=== PATIENT | male | born 1940 | race Caucasian/White ===

== ENCOUNTER 2019-09-15 11:28 | Emergency (ER) | payer OTHER, SELFPAY ==
--- NOTE | ~2019-09-15 | XR_ITS ---
EXAMINATION: XR abdomen/kub 1V DATE: 09/15/2019 13:16 INDICATION: Left flank pain. TECHNIQUE: A supine view of the abdomen on 2 radiographs was obtained. COMPARISON: CT abdomen and pelvis 09/15/2019 FINDINGS: There are phleboliths in the pelvis. There is a 5 mm stone at left ureteropelvic junction. The kidneys are obscured by bowel. There are no dilated loops of bowel. IMPRESSION: 1. 5 mm stone at left ureteropelvic junction. Reviewed, dictated and finalized at location A.
--- NOTE | ~2019-09-15 | CT_ITS ---
EXAMINATION: CT abdomen pelvis wo con DATE: 09/15/2019 12:39 INDICATION: Left flank pain. TECHNIQUE: Computed tomography (CT) of the abdomen and pelvis was performed without intravenous contr ast. Automated exposure control and iterative reconstruction technique were employed. The dose-length product was 484.16 mGy-cm. COMPARISON: CT abdomen and pelvis 01/07/2009 FINDINGS: The visualized portions of the lung bases demonstrate mild atelectasis. No pleural effusion . The heart size is normal. There are coronary artery calcifications. No pericardial effusion. There is a large sliding hiatal hernia. The liver, gallbladder, spleen, pancreas, and adrenal glands are no rmal. There is a 2 mm stone in right kidney. There are 2 mm and 3 mm stones in left kidney. There is mild left hydronephrosis. There is a 5 mm stone at left ureteropelvic junction. There is diverticulos is of the colon without evidence of diverticulitis. There are no dilated loops of bowel. The appendix is normal. There are no pathologically enlarged lymph nodes. There is no free intraperitoneal fluid. There is severe lower lumbar spondylosis and mild thoracic spondylosis. IMPRESSION: 1. 5 mm stone at left ureteropelvic junction with mild left hydronephrosis. 2. Bilateral nonobstructing kidney stones. Reviewed, dictated and finalized at location A.
[2019-09-15 11:39] VITALS: BP 175/70; PULSE 73; RESP 14; TEMP 36.1; O2SAT 99
--- NOTE | 2019-09-15 11:40 | ED.ABDPAIN ---
HPI - Abdominal Pain General Chief Complaint: Back Pain/Injury Stated Complaint: L FLANK PAIN TD Time Seen by Provider: 09/15/19 11:31 Source: RN notes reviewed History of Present Illness HPI narrative: Patient presents emergency department from home for left flank pain. Patient states his symptoms began this morning after he had a bowel movement. Pain is located left flank and does not radiate. Described as sharp and stabbing. He reports mild associated nausea. Denies any fevers or chills chest pain shortness of breath abdominal pain vomiting diarrhea or any other symptoms. The patient states he is taken no previous pain medication at home Related Data Allergies Allergy/AdvReac Type Severity Reaction Status Date / Time omeprazole Allergy Severe UNKNOWN Verified 12/25/18 08:11 celecoxib Allergy Unknown Verified 12/06/15 07:43 clopidogrel Allergy Unknown Verified 12/06/15 07:42 lisinopril Allergy Unknown Verified 12/06/15 07:42 Penicillins Allergy Unknown Verified 12/06/15 07:43 Dmxvnrr-Pjj-Zyh Reductase Allergy Unknown JOINT PAIN Verified 12/25/18 08:11 Inhibitor CLOPIDOGREL BISULFATE Allergy Unknown PATIENT Uncoded 12/25/18 08:11 STATES HE BLED OUT Review of Systems Review of Systems: Narrative: Gen.: Denies fevers or chills Eyes: Denies eye pain or visual change ENT: Denies congestion Respiratory: Denies shortness of breath or cough CV: Denies chest pain or palpitations GI: Denies abdominal pain nausea, emesis or diarrhea reports left flank pain denies burning, urgency, frequency or hematuria Musculoskeletal: Denies back pain or muscle pain Neuro: Denies numbness, tingling, weakness or focal weakness Skin: Denies rash Except as documented, all other systems reviewed and negative [facility] Past Medical History Medical History (Updated 09/15/19 @ 13:03 by Adams Toro DO) Coronary artery disease GERD (gastroesophageal reflux disease) Social History Social History Smoking status: Never smoker Alcohol intake: current Gender identity (if verbalized by the patient): Male Exam Narrative: Exam Narrative: APPEARANCE: No acute distress, nontoxic, resting in bed EYES: EOMI HEENT: Normocephalic, atraumatic, OMM RESPIRATORY: No respiratory distress Clear to auscultation bilaterally with no rhonchi wheezing or rales. CARDIOVASCULAR: Regular rate and rhythm without murmurs rubs or gallops. ABDOMINAL: Soft, nontender, nondistended, no rebound or guarding left flank tender to palpation no overlying rashes MUSCULOSKELETAl: Moves all extremities. No clubbing, cyanosis or edema. NEURO: Awake and alert. Following commands, speech normal, no focal deficits SKIN:: Warm, dry. No rashes lesions or abrasions PSYCHIATRIC: Normal affect/mood, Course Course Emergency Course: Discussed with patient results of workup and diagnosis. Discussed need for follow-up with primary care, proper use of medication, and reasons to return to the emergency department. Patient understands and agrees to current treatment plan Vital Signs Vital signs: Vital Signs Temperature 97.0 F L 09/15/19 11:39 Pulse Rate 73 09/15/19 11:39 Respiratory Rate 14 09/15/19 11:39 Blood Pressure 175/70 H 09/15/19 11:39 Pulse Oximetry 99 09/15/19 11:39 Temperature 97.0 F L 09/15/19 11:39 Pulse Rate 73 09/15/19 11:39 Respiratory Rate 14 09/15/19 11:39 Blood Pressure 175/70 H 09/15/19 11:39 Pulse Oximetry 99 09/15/19 11:39 MDM - Abdominal Pain Lab Data Result diagrams: 09/15/19 12:00 09/15/19 12:00 Labs: Lab Results 09/15/19 09/15/19 09/15/19 Range/Units 12:00 12:00 12:08 WBC 8.8 (4.5-10.0) K/mm3 RBC 4.55 L (4.6-6.20) M/mm3 Hgb 14.0 (14.0-18.0) g/dL Hct 42.2 (42.0-52.0) % MCV 92.7 (80-100) fl MCH 30.8 (26-34) pg MCHC 33.2 (32-36) g/dl RDW 12.8 (11.5-14.5) % Plt Count 239
[2019-09-15 12:10] LABS: Basophils Percent Auto 0.5 % (0.2-1.2); Eosinophils Percent Auto 0.2 % (0-4.4); Hematocrit 42.2 % (42.0-52.0); Immature Granulocyte Absolute 0.03 K/mm3 (0.00-0.031); Immature Granulocyte Percent A 0.3 % (0-0.5); Lymphocytes Absolute Auto 0.79 K/mm3 (0.9-3.2); Mean Corpuscular HGB Conc 33.2 g/dl (32-36); Mean Corpuscular Hemoglobin 30.8 pg (26-34); Mean Corpuscular Volume 92.7 fl (80-100); Mean Platelet Volume 10.3 fl (7.4-10.4); Monocytes Absolute Auto 0.4 K/mm3 (0.1-0.6); Monocytes Percent Auto 4.1 % (2.6-8.5); Neutrophils Absolute Auto 7.5 K/mm3 (1.3-6.7); Neutrophils Percent Auto 85.9 % (45.5-73.1); Platelet Count Result 239 k/mm3 (150-375); Red Blood Count 4.55 M/mm3 (4.6-6.20); Red Cell Distribution Width 12.8 % (11.5-14.5); White Blood Count 8.8 K/mm3 (4.5-10.0)
[2019-09-15 12:21] LABS: Add Urine Microscopic? YES; Appearance Urine Clear (Clear); Bilirubin Urine Negative (Negative); Blood Urine 2+ (Negative); Color Urine Yellow (Yellow); Glucose Urine UA Negative (Negative); Ketones Urine Negative (Negative); Leukocyte Esterase Ur Negative LEU/UL (Negative); Mucus Urine Rare /lpf; Nitrate Urine Negative (Negative); Protein Urine 1+ mg/dL (Negative); RBC Urine 21-50 /hpf (0-2); Urobilinogen Urine Negative mg/dL (<2.0); WBC Urine 0-3 /hpf
[2019-09-15 12:22] LABS: Alanine Aminotransferase 15 U/L (4-50); Albumin Level 4.9 g/dL (3.5-5.1); Alkaline Phosphatase 69 U/L (38-126); Aspartate Amino Transferase 25 U/L (17-59); Bilirubin,Total 0.4 mg/dL (0.2-1.3); Blood Urea Nitrogen 21 mg/dL (9-20); Calcium 9.5 mg/dL (8.4-10.2); Carbon Dioxide 27 mmol/L (22-30); Chloride 107 mmol/L (98-107); Estimated CRCL calculation 47 ml/min; Estimated Glomerular Filt Rate 49; Glucose 129 mg/dL (75-110); Lipase 150 U/L (23-300); Sodium 141 mmol/L (137-145)
[2019-09-15] MEDS: TAMSULOSIN HCL 0.4 MG CAPSULE PO (13:41)
[2019-09-15 14:02] VITALS: BP 170/74; PULSE 70; RESP 14; O2SAT 99
== END 2019-09-15 14:10 | disposition home or self-care (01) ==
PROVIDERS: Emergency Provider Emergency Medicine; PCP Family Medicine Adolescent Medicine
DX: N13.2 Hydronephrosis with renal and ureteral calculous obstruction (principal); I25.10 Atherosclerotic heart disease of native coronary artery without angina pectoris; K21.9 Gastro-esophageal reflux disease without esophagitis
CPT/HCPCS: 36415; 74018; 74176; 80053; 81001; 83690; 85025; 96374; 99284; A9270; J0131

== ENCOUNTER 2019-09-16 11:00 | Outpatient (CLI) | payer OTHER, SELFPAY ==
--- NOTE | ~2019-09-16 | XR_ITS ---
EXAMINATION: XR abdomen/kub 1V INDICATION: Left ureteropelvic junction stone TECHNIQUE: Supine view of the abdomen is obtained on two radiographs. COMPARISON: 09/15/2019 FINDINGS: A 5 mm stone is again seen at the expected location of the left ureteropelvic junction. Phl eboliths are noted in the pelvis. The bowel gas pattern is normal. IMPRESSION: 1. Unchanged 5 mm stone at the left ureteropelvic junction. Reviewed, dictated and finalized at location A.
== END 2019-09-16 11:01 | disposition home or self-care (01) ==
PROVIDERS: PCP Family Medicine Adolescent Medicine; Visit Provider Urology
DX: N20.1 Calculus of ureter (principal)
CPT/HCPCS: 74018

== ENCOUNTER 2019-09-28 11:34 | Outpatient (CLI) | payer OTHER, SELFPAY ==
--- NOTE | ~2019-09-28 | XR_ITS ---
EXAMINATION: XR abdomen/kub 1V INDICATION: Left ureteral stone TECHNIQUE: Supine views of the abdomen were obtained on 2 radiographs. COMPARISON: 09/16/2019 FINDINGS: The previously described 5 mm stone at the left ureteropelvic junction is not definitely id entified. There are phleboliths of the pelvis. The bowel gas pattern is normal. IMPRESSION: 1. Previously described left UPJ stone not definitely identified. Reviewed, dictated and finalized at location A.
== END 2019-09-28 11:35 | disposition home or self-care (01) ==
LOC: ANHIMG 11:39
PROVIDERS: PCP Family Medicine Adolescent Medicine; Visit Provider Urology
DX: N20.1 Calculus of ureter (principal)
CPT/HCPCS: 74018

== ENCOUNTER → 2021-08-10 09:06 | Outpatient (CLI) | payer OTHER, SELFPAY ==
[2021-08-10 16:02] LABS: SARS-CoV-2 RNA PCR Negative
== END ==
PROVIDERS: PCP Family Medicine Adolescent Medicine; Visit Provider Family Medicine Adolescent Medicine
DX: R05.9 Cough, unspecified (principal); Z20.822 Contact with and (suspected) exposure to COVID-19
CPT/HCPCS: C9803; U0003; U0005

== ENCOUNTER → 2021-09-20 14:02 | Outpatient (CLI) | payer OTHER, SELFPAY ==
--- NOTE | ~2021-09-20 | XR_ITS ---
EXAMINATION: XR lumbar spine 2-3V DATE: 09/20/2021 14:27 INDICATION: Right-sided low back pain TECHNIQUE: Anteroposterior and lateral views of the lumbar spine, and cone-down lateral view of the l umbosacral junction were obtained. COMPARISON: CT, 09/15/2019 FINDINGS: There is no fracture. The vertebral body alignment is normal. There is severe loss of inter vertebral disc space height at L5-S1. Vertebral body heights are maintained. Small degenerative osteo phytes project from the anterior endplates of multiple vertebral bodies. IMPRESSION: 1. Moderate lumbar spondylosis at L5-S1 without acute findings. Reviewed, dictated and finalized at location F.
== END ==
PROVIDERS: PCP Family Medicine Adolescent Medicine; Visit Provider Family Medicine Adolescent Medicine
DX: M53.3 Sacrococcygeal disorders, not elsewhere classified (principal); M47.897 Other spondylosis, lumbosacral region
CPT/HCPCS: 72100

== ENCOUNTER → 2022-07-04 16:34 | Outpatient (CLI) | payer OTHER, SELFPAY ==
--- NOTE | ~2022-07-04 | MR_ITS ---
EXAMINATION: MR lumbar spine wo con DATE: 07/04/2022 17:26 INDICATION: Bilateral sciatica. Low back pain. L5-S1 disc collapse. TECHNIQUE: Magnetic resonance imaging (MRI) of the lumbar spine was performed without intravenous con trast. Sequences included sagittal T2-weighted FSE, sagittal T2-weighted FS FSE, sagittal T1-weighted FSE, and axial T2-weighted FSE. COMPARISON: Lumbar spine radiograph 09/20/2021 FINDINGS: There is 3 mm anterolisthesis of L4 on L5. There is mild chronic anterior wedging of T12 ve rtebral body. There is moderately decreased disc height at L5-S1 with endplate remodeling. The distal spinal cord signal intensity is normal. The conus medullaris is at T12-L1. The following disc levels are specifically discussed: L1-L2: There is a right central protrusion. There is mild right facet joint osteoarthritis. There is no neural foraminal stenosis. There is mild central canal stenosis. L2-L3: The disc is bulging. There is moderate bilateral facet joint osteoarthritis. There is mild waylon ateral neural foraminal stenosis. There is mild central canal stenosis. L3-L4: The disc is bulging. There is severe bilateral facet joint osteoarthritis. There is hypertroph y of the ligamentum flavum. There is mild bilateral neural foraminal stenosis. There is mild central canal stenosis. L4-L5: The disc is bulging. There is severe bilateral facet joint osteoarthritis. There is hypertroph y of the ligamentum flavum. There is mild bilateral neural foraminal stenosis. There is moderate cent ral canal stenosis. L5-S1: The disc is bulging and has an annular fissure. There is mild bilateral facet joint osteoarthr itis. There is moderate bilateral neural foraminal stenosis. There is mild central canal stenosis. IMPRESSION: 1. Moderate lower lumbar spondylosis. Reviewed, dictated and finalized at location A.
== END ==
PROVIDERS: PCP Family Medicine Adolescent Medicine; Visit Provider Family Medicine Adolescent Medicine
DX: M54.31 Sciatica, right side (principal); M54.32 Sciatica, left side; M47.896 Other spondylosis, lumbar region
CPT/HCPCS: 72148

== ENCOUNTER → 2022-08-24 08:02 | Outpatient (CLI) | payer OTHER, SELFPAY ==
--- NOTE | ~2022-08-24 | US_ITS ---
EXAMINATION: US aorta DATE: 08/24/2022 08:23 INDICATION: Abdominal aortic aneurysm. TECHNIQUE: Grayscale, color Doppler, and pulsed Doppler images of the aorta and common iliac arteries were obtained. COMPARISON: Lumbar spine MRI 07/04/2022 FINDINGS: The aorta demonstrates a 3.5 cm fusiform infrarenal aneurysm. The right common iliac artery measures 1.4 cm. The left common iliac artery measures 1.3 cm. IMPRESSION: 1. 3.5 cm fusiform infrarenal aortic aneurysm. Reviewed, dictated and finalized at location A.
== END ==
PROVIDERS: PCP Pain Medicine Pain Medicine; Visit Provider Family Medicine Adolescent Medicine
DX: I71.43 Infrarenal abdominal aortic aneurysm, without rupture (principal)
CPT/HCPCS: 76775

== ENCOUNTER 2023-02-28 10:03 | Emergency (ER) | payer OTHER, SELFPAY ==
--- NOTE | ~2023-02-28 | XR_ITS ---
EXAMINATION: XR chest 2V DATE: 02/28/2023 11:04 INDICATION: Cough. TECHNIQUE: Frontal and lateral views of the chest were obtained on 3 radiographs. COMPARISON: Chest 2 views 02/25/2009 FINDINGS: There is no pneumonia, pleural effusion, or pneumothorax. The heart size is normal. There i s a large hiatal hernia. There is mild chronic anterior wedging of multiple thoracic vertebral bodies . IMPRESSION: 1. Large hiatal hernia. Reviewed, dictated and finalized at location A. ER INSULATOR IMPRESSION: 1. Large hiatal hernia.
--- NOTE | 2023-02-28 10:09 | ED.URI ---
HPI - URI/Sore Throat General Chief Complaint: Upper Respiratory Infection Stated Complaint: COUGH Time Seen by Provider: 02/28/23 10:50 Source: patient and RN notes reviewed Mode of arrival: ambulatory Limitations: no limitations History of Present Illness HPI Narrative: 82-year-old male presents concern for cough for 1 month. He reports he has tried ctbv-xxo-obtkpem medication that has not helped. He denies fever, body aches, chills, sweats. Reports some nasal congestion or rhinorrhea. MD elicited complaint: cough Related Data Home Medications Medication Instructions Recorded Confirmed coenzyme Q10 100 mg capsule 100 mg PO DAILY 06/25/22 02/28/23 (CoQ-10) magnesium 250 mg tablet 250 mg PO DAILY 06/25/22 02/28/23 omega 2-qgr-esv-fish oil 60 mg-90 1 cap PO DAILY 06/25/22 02/28/23 mg-500 mg capsule (Fish Oil) latanoprost 0.005 % eye drops 1 drp EACH EYE HS 02/28/23 02/28/23 timolol maleate 0.5 % eye drops 1 drp EACH EYE DAILY 02/28/23 02/28/23 Allergies Allergy/AdvReac Type Severity Reaction Status Date / Time omeprazole Allergy Severe UNKNOWN Verified 02/28/23 10:08 celecoxib Allergy Unknown Joint Pain Verified 02/28/23 10:08 clopidogrel Allergy Unknown Bleeds out Verified 02/28/23 10:08 lisinopril Allergy Unknown cough Verified 02/28/23 10:08 Penicillins Allergy Unknown Rash Verified 02/28/23 10:08 Qahmfne-RRL-AxT Reductase Allergy Unknown JOINT PAIN Verified 02/28/23 10:08 Inhibitor [Eodsfjr-Psm-Yyz Reductase Inhibitor] CLOPIDOGREL BISULFATE Allergy Unknown PATIENT Uncoded 02/28/23 10:08 STATES HE BLED OUT Review of Systems Review of Systems: CONSTITUTIONAL: Denies malaise, chills, sweats, or fever. EYES: Denies visual changes, redness, or discharge. ENT: Reports rhinorrhea, congestion. Denies sinus pain, otalgia and sore throat. CARDIOVASCULAR: Denies chest pain, palpitations, or edema. RESPIRATORY: Reports cough. Denies dyspnea. GASTROINTESTINAL: Denies abdominal pain, nausea, vomiting, diarrhea SKIN: Denies rash or itching. MUSCULOSKELETAL: Denies myalgia. NEUROLOGIC: Denies headache. All systems reviewed & are unremarkable except as noted in HPI and below PMFSH Past Medical History Medical History Coronary artery disease GERD (gastroesophageal reflux disease) Normal colonoscopy 12/17 Family History Family History Mother Heart disease Acute myocardial infarction Breast cancer Father Carcinoma of colon Depression Sibling Heart disease Other Asthma Social History Social History (Updated 08/23/22 @ 11:07 by Vinny Harris MA) Smoking status: Never smoker Second hand tobacco smoke exposure: Yes Alcohol intake: never Substance use: never Substance use type: does not use Lack of Transportation: No Lack of Food: Never True Current Housing: I Have Housing Concerned About Future Housing: No Difficulty Paying Gas/Electric Bills: No Difficulty Paying for Meds: No Currently Unemployed: No Education: High School Diploma/GED Living arrangements: with family Occupation/Education: retired Gender identity (if verbalized by the patient): Male Sexual Orientation (if Verbalized by the Patient): Straight or Heterosexual Spiritual care concerns: No Agree to blood products: Yes Comments At time of signature, agree with nursing past medical, surgical, social and family history. There is no relevant family history pertinent to the presenting complaint Exam Narrative: GENERAL: Well-appearing, well-nourished, and in no acute distress. HEAD: Normocephalic EYES: PERRLA, conjunctivae clear ENT: Nares clear, turbinates edematous and erythematous, clear discharge. Mucous membranes moist. TM pearly michael with dull light reflex bilaterally; no tragal tenderness. Oropharynx not erythematous without lesions. Tonsils not enlarge
[2023-02-28 10:13] VITALS: BP 146/72; PULSE 108; RESP 16; TEMP 36.5; O2SAT 94
== END 2023-02-28 11:30 | disposition home or self-care (01) ==
PROVIDERS: Emergency Provider Nurse Practitioner; PCP Family Medicine Adolescent Medicine
DX: J40 Bronchitis, not specified as acute or chronic (principal); I25.10 Atherosclerotic heart disease of native coronary artery without angina pectoris; K21.9 Gastro-esophageal reflux disease without esophagitis
CPT/HCPCS: 71046; 99213; G0463

== ENCOUNTER → 2023-04-29 10:41 | Outpatient (CLI) | payer OTHER, SELFPAY ==
--- NOTE | ~2023-04-29 | US_ITS ---
EXAMINATION: US aorta DATE: 04/29/2023 10:57 INDICATION: Abdominal aortic aneurysm. TECHNIQUE: Grayscale, color Doppler, and pulsed Doppler images of the aorta and common iliac arteries were obtained. COMPARISON: Ultrasound 08/24/2022, lumbar spine MRI 07/04/2022 FINDINGS: The aorta demonstrates a 3.5 cm fusiform infrarenal aneurysm. The right common iliac artery is normal in caliber. The left common iliac artery is normal in caliber. IMPRESSION: 1. 3.5 cm fusiform aneurysm of infrarenal aorta, stable from 08/24/2022. Reviewed, dictated and finalized at location A. HEAD
== END ==
PROVIDERS: PCP Family Medicine Adolescent Medicine; Visit Provider Family Medicine Adolescent Medicine
DX: I71.43 Infrarenal abdominal aortic aneurysm, without rupture (principal)
CPT/HCPCS: 76775

== ENCOUNTER 2024-06-04 13:51 | Emergency (ER) | payer OTHER, SELFPAY ==
[2024-06-04 14:04] VITALS: BP 141/97; PULSE 83; RESP 16; TEMP 36.5; O2SAT 99
--- NOTE | 2024-06-04 14:12 | ECG_ITS ---
Test Date: 2024-06-04 14:34:42 Measurements Intervals [place] Rate: 71 P: 70 [place]: 209 QRS: -3 QRSD: 92 T: 44 QT: 380 QTc: 415 Interpretive Statements SINUS RHYTHM LOW QRS VOLTAGE IN THE LIMB LEADS BORDERLINE ECG No previous ECG available for comparison Electronically Signed On 06-05-2024 15:29:28 MARRIAGE AND FAMILY COUNSELOR by Ilan Gardiner M.D.
--- NOTE | 2024-06-04 14:19 | ED_ITS ---
HPI - General Adult General Chief complaint: Unspecified Stated complaint: BLOOD PRESSURE PROBLEMS/SOB/WEAK Time Seen by Provider: 06/04/24 14:20 Source: patient Mode of arrival: ambulatory Limitations: no limitations History of Present Illness HPI narrative: 83-year-old male with hx CO and AAA presented for complaint of an episode of dizziness today at 11:00 a.m.. Endorses heavy breathing, weakness, and felt like he was going to pass out. He then checked his blood pressure and heart rate which were elevated, says the heart rate was 150. Denies associated palpitations chest pain, n/v at that time. Patient endorses these episodes are frequent over the past few months occurring a few times each week. Related Data Home Medications ?Medication ?Instructions ?Recorded ?Confirmed ?Last Taken ?Type coenzyme Q10 100 mg capsule 100 mg PO DAILY 06/25/22 01/22/24 Unknown History (CoQ-10) magnesium 250 mg tablet 250 mg PO DAILY 06/25/22 01/22/24 Unknown History omega 0-ciz-gey-fish oil 60 mg-90 1 cap PO DAILY 06/25/22 01/22/24 Unknown History mg-500 mg capsule (Fish Oil) latanoprost 0.005 % eye drops 1 drp EACH EYE HS 02/28/23 01/22/24 Unknown History timolol maleate 0.5 % eye drops 1 drp EACH EYE DAILY 02/28/23 01/22/24 Unknown History Allergies Allergy/AdvReac Type Severity Reaction Status Date / Time omeprazole Allergy Severe UNKNOWN Verified 06/04/24 14:03 celecoxib Allergy Unknown Joint Pain Verified 06/04/24 14:03 clopidogrel Allergy Unknown Bleeds out Verified 06/04/24 14:03 lisinopril Allergy Unknown cough Verified 06/04/24 14:03 Penicillins Allergy Unknown Rash Verified 06/04/24 14:03 Xcgodht-QTO-JsE Reductase Allergy Unknown JOINT PAIN Verified 06/04/24 14:03 Inhibitor (Upukafj-Oni-Thi Reductase Inhibitor) prednisone AdvReac Intermediate Other Verified 06/04/24 14:03 trazodone AdvReac Intermediate Other Verified 06/04/24 14:03 CLOPIDOGREL BISULFATE Allergy Unknown PATIENT Uncoded 06/04/24 14:03 STATES HE BLED OUT Review of Systems Review of Systems: Per HPI All systems reviewed & are unremarkable except as noted in HPI and below PMFSH Past Medical History Medical History Coronary artery disease GERD (gastroesophageal reflux disease) Normal colonoscopy 12/17 Family History Family History Mother Heart disease Acute myocardial infarction Breast cancer Father Carcinoma of colon Depression Sibling Heart disease Other Asthma Social History Social History (Updated 08/23/22 @ 11:07 by Vinny Harris MA) Smoking status: Never smoker Second hand tobacco smoke exposure: Yes Alcohol intake: never Substance use: never Substance use type: does not use Lack of Transportation: No Lack of Food: Never True Current Housing: I Have Housing Concerned About Future Housing: No Difficulty Paying Gas/Electric Bills: No Difficulty Paying for Meds: No Currently Unemployed: No Education: High School Diploma/GED Living arrangements: with family Occupation/Education: retired Gender identity (if verbalized by the patient): Male Sexual Orientation (if Verbalized by the Patient): Straight or Heterosexual Spiritual care concerns: No Agree to blood products: Yes Comments At time of signature, I have reviewed and agree with nursing past medical, surgical, social and family history unless otherwise noted. Please see nursing chart for further information. There is no relevant family history pertinent to the presenting complaint Exam Narrative: GENERAL: Well-appearing ENT: Mucous membranes pink and moist. NECK: Normal AROM. Supple. CHEST: No respiratory distress. Clear to auscultation. HEART: Regular rate and rhythm. No murmur appreciated. Normal peripheral pulses. ABDOMEN: Soft, nontender, nondistended, normal active bowel sounds. EXTREMITIES: Normal range of motion. No edema. SKIN: Warm, dry, no rash. Capillary refill normal. NEURO: No focal deficits. Alert and oriented x3. Gait steady. PSYCH: Normal affect. Course Course Emergency Course: Patient is aware of diagnosis, understands and agrees to treatment plan. Anticipatory guidance given. Patient agrees to follow-up as directed and is aware of reasons to seek care at the emergency department. Portions of this record may have been created with voice recognition software Level of Care: Express Care Visit Vital Signs Vital signs: Vital Signs Temperature 97.7 F 06/04/24 14:04 Pulse Rate 83 06/04/24 14:04 Respiratory Rate 16 06/04/24 14:04 Blood Pressure 141/97 H 06/04/24 14:04 Pulse Oximetry 99 06/04/24 14:04 Temperature 97.7 F 06/04/24 14:04 Pulse Rate 83 06/04/24 14:04 Respiratory Rate 16 06/04/24 14:04 Blood Pressure 141/97 H 06/04/24 14:04 Pulse Oximetry 99 06/04/24 14:04 Transfer Transfered to: [place] Transportation: Other (private vehicle) Transfer rationale: Pt is agreeable to transfer. Requests transfer to [facility] via private vehicle. Risks of transportation reviewed with pt including injury, worsening of condition and . v/u. will be driving pt; Report called to hospital, spoke with Chayo Zabala PA-C, accepting physician. Pt is in stable condition at time of transfer. Advised to remain NPO and go directly to the hospital. Medical Decision Making MDM Narrative Medical decision making narrative: Pt with reports of frequent dizziness/weakness episodes with elevated HR for a few months. Discussed physical exam findings, EKG NSR 71 Attempted to discusss with pt's pcp, however office is closed. Offered option for ER transfer as pt will not be able to contact pcp for at least 3 days, and pt is agreeable at this time. Differential Diagnosis Differential Diagnosis: CO, anemia, dehydration, sepsis, arrhythmia, BPPV, labyrinthitis, vestibular neuritis, sinusitis, CVA, migraine Vital Signs Vital Signs: Vital Signs Temperature 97.7 F 06/04/24 14:04 Pulse Rate 83 06/04/24 14:04 Respiratory Rate 16 06/04/24 14:04 Blood Pressure 141/97 H 06/04/24 14:04 Pulse Oximetry 99 06/04/24 14:04 Temperature 97.7 F 06/04/24 14:04 Pulse Rate 83 06/04/24 14:04 Respiratory Rate 16 06/04/24 14:04 Blood Pressure 141/97 H 06/04/24 14:04 Pulse Oximetry 99 06/04/24 14:04 reviewed ECG Data EKG #1: Attestation: I personally reviewed and interpreted this ECG as follows: (NSR 71) ECG completion date: 06/04/24 ECG completion time: 14:34 EKG Interpretation: normal rate and sinus rhythm Discharge Plan Discharge Clinical Impression: Dizziness Patient Disposition: Acute Care Hospital Condition: Stable Patient Language: Mohawk Prescriptions: No Action latanoprost 0.005 % drops 1 drp EACH EYE HS timolol maleate 0.5 % drops 1 drp EACH EYE DAILY magnesium 250 mg tablet 250 mg PO DAILY coenzyme Q10 [CoQ-10] 100 mg capsule 100 mg PO DAILY omega 1-dcq-hbz-fish oil [Fish Oil] 60-90-500 mg capsule 1 cap PO DAILY allopurinol 100 mg tablet 100 mg PO DAILY Qty: 30 8RF Rx Instructions: Take 1 tablet by mouth daily. colchicine 0.6 mg tablet 0.6 mg PO DAILY Qty: 20 0RF Rx Instructions: Take 1 tablet once daily until until 24 to 48 hours after the gout flare resolves. Follow-up/Referrals: Alex Pepper MD [Primary Care Provider] - Time of Disposition: 14:49
== END 2024-06-04 14:53 | disposition short-term general hospital (02) ==
PROVIDERS: Emergency Provider Nurse Practitioner Family; PCP Family Medicine Adolescent Medicine
DX: R42 Dizziness and giddiness (principal); I25.10 Atherosclerotic heart disease of native coronary artery without angina pectoris
CPT/HCPCS: 93005; 99213; G0463

== ENCOUNTER 2024-06-04 15:17 | Emergency (ER) | payer OTHER, SELFPAY ==
--- NOTE | ~2024-06-04 | XR_ITS ---
XR chest 1V portable Ordering provider: Chacorta King MD History: 83 years Male with . Palpitations . Comparison: February 28, 2023 FINDINGS: MEDIASTINUM: The cardiac silhouette is not enlarged. Sliding hiatus hernia. LUNGS: No infiltrates, effusions or pneumothorax. OTHER: No free air under the diaphragm. IMPRESSION: No acute cardiopulmonary pathology. Sliding hiatus hernia. Reviewed, dictated and finalized at location A. ER
--- OUTSIDE RECORDS SUMMARY | 2024-06-04 15:21 | XMS_ITS | Clinical Summary ---
Author Organization [facility] Address [address] [place] [id number] Care Team Providers Care Drum Sander Offbearer Name Role Phone Alex Pepper MD Primary Care Provider [phone] Social History Tobacco Use Types Packs/Day Years Used Date Smoking Tobacco: Never Assessed Sex and Gender Information Value Date Recorded Sex Assigned at Not on file Legal Sex Male 12:35 PM CDT Gender Identity Not on file Sexual Orientation Not on file Plan of Treatment Health Maintenance Due Date Last Done Comments Zoster Vaccines (1 of 2) 1992 Annual Medicare Wellness Visit 07/24/2007 Pneumococcal Vaccine: 65+ Ye ars (1 of 1 - PCV) 07/24/2007 RSV Immunization or 60+ Years (1 - 1-dose 75+ series) 2017 COVID-19 Vaccine (2023-2 5 season) 2023 Influenza Adult (#1) 2023 DTaP, Tdap and Td Vaccines ( 2 - Td or Tdap) 10/19/2029 10/20/2019 Meningococcal B Vaccine Aged Out No l onger eligible based on patient's age to complete this topic Meningococcal Vaccine Aged Out No robbie jyoti eligible based on patient's age to complete this topic RSV Immunizations Under 20 Months Aged Out No longer eligible based on patient's age to complete this topic Insurance [employer] Care Teams Drum Sander Offbearer Relationship Specialty Start Date End Date Alex Pepper MD [address] [address] PCP - General FAMILY PRACTICE 08/13/22
[2024-06-04 15:26] VITALS: BP 145/72; PULSE 83; RESP 17; TEMP 37; O2SAT 100
[2024-06-04 18:52] VITALS: BP 141/91; PULSE 68; RESP 20; TEMP 36.8; O2SAT 100
--- NOTE | 2024-06-04 19:28 | ECG_ITS ---
Test Date: 2024-06-04 19:51:35 Measurements Intervals [place] Rate: 65 P: 36 NV: 185 QRS: -16 QRSD: 86 T: 14 QT: 399 QTc: 416 Interpretive Statements SINUS RHYTHM LOW-VOLTAGE OTHERWISE NORMAL ELECTROCARDIOGRAM Compared to ECG 06/04/2024 14:34:42 No significant changes Electronically Signed On 06-05-2024 15:39:46 WOOL FLEECE SORTER by Ilan Gardiner M.D.
--- NOTE | 2024-06-04 20:03 | ED_ITS ---
HPI - General Adult General Chief complaint: Recheck/Abnormal Lab/Rx Stated complaint: HTN, dizzy, weak Time Seen by Provider: 06/04/24 19:21 History of Present Illness HPI narrative: Patient is 83-year-old gentleman presents emergency department with chief complaint of palpitations. Patient states that he episode today refill was heart was beating fast and felt lightheaded patient reports no syncope with this denies chest pain patient reports he has had episodes similar to this in the past the patient went to urgent care today and they recommended he come to the emergency department for evaluation. Related Data Home Medications ?Medication ?Instructions ?Recorded ?Confirmed ?Last Taken ?Type coenzyme Q10 100 mg capsule 100 mg PO DAILY 06/25/22 01/22/24 Unknown History (CoQ-10) magnesium 250 mg tablet 250 mg PO DAILY 06/25/22 01/22/24 Unknown History omega 5-ivr-hnh-fish oil 60 mg-90 1 cap PO DAILY 06/25/22 01/22/24 Unknown History mg-500 mg capsule (Fish Oil) latanoprost 0.005 % eye drops 1 drp EACH EYE HS 02/28/23 01/22/24 Unknown History timolol maleate 0.5 % eye drops 1 drp EACH EYE DAILY 02/28/23 01/22/24 Unknown History Allergies Allergy/AdvReac Type Severity Reaction Status Date / Time omeprazole Allergy Severe UNKNOWN Verified 06/04/24 18:56 celecoxib Allergy Unknown Joint Pain Verified 06/04/24 18:56 clopidogrel Allergy Unknown Bleeds out Verified 06/04/24 18:56 lisinopril Allergy Unknown cough Verified 06/04/24 18:56 Penicillins Allergy Unknown Rash Verified 06/04/24 18:56 Ydetsdo-MYO-JnQ Reductase Allergy Unknown JOINT PAIN Verified 06/04/24 18:56 Inhibitor (Oubhilx-Itj-Bye Reductase Inhibitor) prednisone AdvReac Intermediate Other Verified 06/04/24 18:56 trazodone AdvReac Intermediate Other Verified 06/04/24 18:56 Review of Systems 2 Review of Systems: A 10 system review of systems was completed on the patient and is negative except for what is stated in the HPI. Nursing and ancillary documentation was reviewed. [facility] Past Medical History Medical History Normal colonoscopy 9/19 GERD (gastroesophageal reflux disease) Coronary artery disease Family History Family History Mother Heart disease Acute myocardial infarction Breast cancer Father Carcinoma of colon Depression Sibling Heart disease Other Asthma Social History Social History Smoking status: Never smoker Second hand tobacco smoke exposure: Yes Alcohol intake: never Substance use: never Substance use type: does not use Lack of Transportation: No Lack of Food: Never True Current Housing: I Have Housing Concerned About Future Housing: No Difficulty Paying Gas/Electric Bills: No Difficulty Paying for Meds: No Currently Unemployed: No Education: High School Diploma/GED Living arrangements: with family Occupation/Education: retired Gender identity (if verbalized by the patient): Male Sexual Orientation (if Verbalized by the Patient): Straight or Heterosexual Spiritual care concerns: No Agree to blood products: Yes Exam 2 Narrative: GENERAL: Well-appearing, well-nourished, and in no acute distress. HEAD: Normocephalic, atraumatic. EYES: PERRLA and EOMI. ENT: Nares clear, no rhinorrhea or epistaxis. Mucous membranes moist. NECK: Supple. CHEST: Clear to auscultation. No respiratory distress. HEART: Regular rate and rhythm. No murmur heard. Normal peripheral pulses. ABDOMEN: Soft, nontender, nondistended, normal active bowel sounds. EXTREMITIES: Normal range of motion. No edema. SKIN: Warm, dry, no rash. NEURO: No focal deficits. Alert and oriented x3. PSYCH: Normal mood and affect. Course Vital Signs Vital signs: Vital Signs Temperature 37.0 C 06/04/24 15:26 Pulse Rate 83 06/04/24 15:26 Respiratory Rate 17 06/04/24 15:26 Blood Pressure 145/72 H 06/04/24 15:26 Pulse Oximetry 100 06/04/24 15:26 Oxygen Delivery Room Air 06/04/24 15:26 Temperature 36.8 C 06/04/24 18:52 Pulse Rate 80 06/04/24 21:18 Respiratory Rate 20 06/04/24 18:52 Blood Pressure 136/78 06/04/24 21:18 Pulse Oximetry 100 06/04/24 18:52 Oxygen Delivery Room Air 06/04/24 15:26 Medical Decision Making MDM Narrative Medical decision making narrative: Differential diagnosis includes dysrhythmia, electrolyte abnormality EKG showed no acute ischemic changes and no dysrhythmia laboratory studies were obtained which are within normal limits Chest x-ray showed no focal infiltrate Patient be discharged home to follow with his primary care provider Vital Signs Vital Signs: Vital Signs Temperature 37.0 C 06/04/24 15:26 Pulse Rate 83 06/04/24 15:26 Respiratory Rate 17 06/04/24 15:26 Blood Pressure 145/72 H 06/04/24 15:26 Pulse Oximetry 100 06/04/24 15:26 Oxygen Delivery Room Air 06/04/24 15:26 Temperature 36.8 C 06/04/24 18:52 Pulse Rate 80 06/04/24 21:18 Respiratory Rate 20 06/04/24 18:52 Blood Pressure 136/78 06/04/24 21:18 Pulse Oximetry 100 06/04/24 18:52 Oxygen Delivery Room Air 06/04/24 15:26 Lab Data 06/04/24 19:57 06/04/24 19:57 Labs: Lab Results 06/04/24 Range/Units 19:57 WBC 5.8 (4.5-10.0) K/mm3 RBC 4.30 L (4.6-6.20) M/mm3 Hgb 13.0 L (14.0-18.0) g/dL Hct 39.1 L (42.0-52.0) % MCV 90.9 (80-100) fl MCH 30.2 (26-34) pg MCHC 33.2 (32-36) g/dl RDW 13.7 (11.5-14.5) % Plt Count 267 (150-375) k/mm3 MPV 10.0 (7.4-10.4) fl Immature Gran % (Auto) 0.2 (0-0.5) % Neut % (Auto) 61.1 (45.5-73.1) % Lymph % (Auto) 28.0 (18.3-44.2) % [place] % (Auto) 10.4 H (2.6-8.5) % Eos % (Auto) 0.0 (0-4.4) % Baso % (Auto) 0.3 (0.2-1.2) % Lymph # (Auto) 1.61 (0.9-3.2) K/mm3 [place] # (Auto) 0.6 (0.1-0.6) K/mm3 Eos # (Auto) 0.0 (0-0.3) K/mm3 Baso # (Auto) 0.0 (0.0-0.1) K/mm3 Abs Immat Gran (auto) 0.01 (0.00-0.031) K/mm3 Absolute Neuts (auto) 3.5 (1.3-6.7) K/mm3 Absolute Nucleated RBC 0.000 (0.0-0.012) K/mm3 Nucleated RBC % 0.0 (0.0-0.2) % PT 13.5 (11.1-14.7) Seconds INR 1.0 APTT 26.6 (22.3-36.8) Seconds Sodium 141 (137-145) mmol/L Potassium 3.9 (3.4-5.0) mmol/L Chloride 104 (98-107) mmol/L Carbon Dioxide 24 (22-30) mmol/L Anion Gap 13 H (4-12) mmol/L BUN 19 (9-20) mg/dL Creatinine 1.24 (0.7-1.3) mg/dL Estim Creat Clear Calc 47 ml/min Estimated GFR 56 L (59 - ) Glucose 100 (65-110) mg/dL Lactic Acid 0.9 (0.7-2.0) mmol/L Calcium 9.3 (8.4-10.2) mg/dL Magnesium 2.3 (1.6-2.3) mg/dL Total Bilirubin 0.9 (0.2-1.3) mg/dL AST 25 (17-59) U/L ALT 16 (6-50) U/L Alkaline Phosphatase 100 (38-126) U/L Troponin I < 0.012 (0.000-0.034) ng/mL Total Protein 8.0 (6.3-8.2) g/dL Albumin 4.8 (3.5-5.1) g/dL Urine Color Yellow (Yellow) Urine Appearance Clear (Clear) Urine pH 5.5 (5.0-9.0) Ur Specific [place] 1.013 (1.001-1.035) Urine Protein Negative (Negative) mg/dL Urine Glucose (UA) Negative (Negative) mg/dL Urine Ketones Trace H (Negative) mg/dL Ur Blood (Man) Negative (Negative) Urine Nitrate Negative (Negative) Urine Bilirubin Negative (Negative) Urine Urobilinogen 0.2 (<2.0) mg/dL Leukocyte Esterase Rfl Negative (Negative) ANNALEE/UL Influenza A (RT-PCR) Negative (Negative) Influenza B (RT-PCR) Negative (Negative) RSV (RT-PCR) Negative (Negative) SARS-CoV-2 RNA (RT-PCR) Negative (Negative) Discharge Plan Discharge Clinical Impression: Heart palpitations Patient Disposition: Home, Self-Care Condition: Stable Instructions: Antibiotic Form, Heart Palpitations (ED) Additional Instructions: Please follow-up with your primary care provider as you may need a Holter monitor test in the near future Patient Language: Slovenian Prescriptions: No Action latanoprost 0.005 % drops 1 drp EACH EYE HS timolol maleate 0.5 % drops 1 drp EACH EYE DAILY magnesium 250 mg tablet 250 mg PO DAILY coenzyme Q10 [CoQ-10] 100 mg capsule 100 mg PO DAILY omega 5-ulj-mbe-fish oil [Fish Oil] 60-90-500 mg capsule 1 cap PO DAILY allopurinol 100 mg tablet 100 mg PO DAILY Qty: 30 8RF Rx Instructions: Take 1 tablet by mouth daily. colchicine 0.6 mg tablet 0.6 mg PO DAILY Qty: 20 0RF Rx Instructions: Take 1 tablet once daily until until 24 to 48 hours after the gout flare resolves. Follow-up/Referrals: Alex Pepper MD [Primary Care Provider] - Time of Disposition: 21:41
[2024-06-04 20:06] LABS: Basophils Percent Auto 0.3 % (0.2-1.2); Hematocrit 39.1 % (42.0-52.0); Immature Granulocyte Absolute 0.01 K/mm3 (0.00-0.031); Immature Granulocyte Percent A 0.2 % (0-0.5); Lymphocytes Absolute Auto 1.61 K/mm3 (0.9-3.2); Mean Corpuscular HGB Conc 33.2 g/dl (32-36); Mean Corpuscular Hemoglobin 30.2 pg (26-34); Mean Corpuscular Volume 90.9 fl (80-100); Monocytes Absolute Auto 0.6 K/mm3 (0.1-0.6); Monocytes Percent Auto 10.4 % (2.6-8.5); Neutrophils Absolute Auto 3.5 K/mm3 (1.3-6.7); Neutrophils Percent Auto 61.1 % (45.5-73.1); Platelet Count Result 267 k/mm3 (150-375); Red Cell Distribution Width 13.7 % (11.5-14.5); White Blood Count 5.8 K/mm3 (4.5-10.0)
[2024-06-04 20:09] LABS: Add Urine Microscopic? NO; Appearance Urine Clear (Clear); Bilirubin Urine Negative (Negative); Blood Urine Negative (Negative); Color Urine Yellow (Yellow); Glucose Urine UA Negative (Negative); Ketones Urine Trace mg/dL (Negative); Leukocyte Esterase Ur Negative LEU/UL (Negative); Nitrate Urine Negative (Negative); Protein Urine Negative (Negative); Specific Grav Ur 1.013 (1.001-1.035); Urobilinogen Urine 0.2 mg/dL (<2.0); pH Urine 5.5 (5.0-9.0)
--- OUTSIDE RECORDS SUMMARY | 2024-06-04 20:12 | XMS_ITS | Clinical Summary ---
Author Organization [facility] Address [address] [place] [id number] Care Team Providers Care Excel Expert Name Role Phone Alex Pepper MD Primary Care Provider [phone]- [phone] Social History Tobacco Use Types Packs/Day Years [...] complete this topic Insurance [employer]ENCE Care Teams Excel Expert Relationship Specialty Start Date End Date Alex Pepper MD [address] [address] PCP - General FAMILY PRACTICE 08/13/22
[2024-06-04 20:14] LABS: Lactic Acid Reflex 0.9 mmol/L (0.7-2.0)
[2024-06-04 20:15] LABS: Alanine Aminotransferase 16 U/L (6-50); Albumin Level 4.8 g/dL (3.5-5.1); Alkaline Phosphatase 100 U/L (38-126); Anion Gap 13 mmol/L (4-12); Aspartate Amino Transferase 25 U/L (17-59); Bilirubin,Total 0.9 mg/dL (0.2-1.3); Blood Urea Nitrogen 19 mg/dL (9-20); Calcium 9.3 mg/dL (8.4-10.2); Carbon Dioxide 24 mmol/L (22-30); Chloride 104 mmol/L (98-107); Estimated CRCL calculation 47 ml/min; Estimated Glomerular Filt Rate 56; Glucose 100 mg/dL (65-110); Magnesium 2.3 mg/dL (1.6-2.3); Potassium 3.9 mmol/L (3.4-5.0); Sodium 141 mmol/L (137-145)
[2024-06-04 20:23] LABS: Prothrombin Time 13.5 Seconds (11.1-14.7)
[2024-06-04 20:24] LABS: Partial Thromboplastin Time 26.6 Seconds (22.3-36.8)
[2024-06-04 20:27] LABS: Troponin I < 0.012 ng/mL (0.000-0.034)
[2024-06-04 20:42] LABS: Influenza A QL RT-PCR Negative (Negative); Influenza B QL RT-PCR Negative (Negative); RSV RNA, RT-PCR Negative (Negative); SARS-CoV-2 RNA PCR Negative (Negative)
[2024-06-04 21:16] VITALS: BP 139/75; PULSE 63
[2024-06-04 21:17] VITALS: BP 130/76; PULSE 64
[2024-06-04 21:18] VITALS: BP 136/78; PULSE 80
[2024-06-04 21:53] VITALS: BP 137/86; PULSE 73; RESP 18; O2SAT 100
== END 2024-06-04 21:53 | disposition home or self-care (01) ==
PROVIDERS: Emergency Provider Emergency Medicine; PCP Family Medicine Adolescent Medicine
DX: R00.2 Palpitations (principal); Z20.822 Contact with and (suspected) exposure to COVID-19; I25.10 Atherosclerotic heart disease of native coronary artery without angina pectoris; K21.9 Gastro-esophageal reflux disease without esophagitis; Z77.22 Contact with and (suspected) exposure to environmental tobacco smoke (acute) (chronic)
CPT/HCPCS: 36415; 71045; 80053; 81003; 83605; 83735; 84484; 85025; 85610; 85730; 87637; 93005; 99284

== ENCOUNTER 2024-06-23 18:00 | Emergency (ER) | payer OTHER, SELFPAY ==
[2024-06-23] VITALS (7 sets, daily range): BP systolic 143–173; BP diastolic 81–96; PULSE 65–86; RESP 10–17; TEMP 36.4; O2SAT 97–100
--- OUTSIDE RECORDS SUMMARY | 2024-06-23 18:03 | XMS_ITS | Clinical Summary ---
Author Organization [facility] Address [address] [place] [address] Care Team Providers Care Milk Drying Machine Operator Name Role Phone Alex Pepper MD Primary Care Provider +1- [phone] Social History Tobacco Use Types Packs/Day Years [...] complete this topic Insurance [employer]SSENCE Care Teams Milk Drying Machine Operator Relationship Specialty Start Date End Date Alex Pepper MD [address] [address] PCP - General FAMILY PRACTICE 08/13/22
--- NOTE | 2024-06-23 18:04 | ECG_ITS ---
Test Date: 2024-06-23 18:23:47 Measurements Intervals [place] Rate: 86 P: 42 OR: 202 QRS: -47 QRSD: 76 T: -1 QT: 349 QTc: 419 Interpretive Statements SINUS RHYTHM WITH OCCASIONAL SUPRAVENTRICULAR PREMATURE COMPLEXES LEFT ANTERIOR FASCICULAR BLOCK [QRS AXIS <= -45, QR IN I, RS IN II] POSSIBLE ANTERIOR MYOCARDIAL INFARCTION , OF INDETERMINATE AGE [30 ms Q WAVE IN V3/V4, OR R < 0.2 mV IN V4] Compared to ECG 06/04/2024 19:51:35 Left anterior fascicular block now present Myocardial infarct finding now present Electronically Signed On 06-24-2024 10:49:38 CDT by Js Muñiz M.D.
[2024-06-23 19:07] LABS: Basophils Percent Auto 0.7 % (0.2-1.2); Hematocrit 34.8 % (42.0-52.0); Hemoglobin 11.6 g/dL (14.0-18.0); Immature Granulocyte Absolute 0.01 K/mm3 (0.00-0.031); Immature Granulocyte Percent A 0.2 % (0-0.5); Lymphocytes Absolute Auto 1.38 K/mm3 (0.9-3.2); Lymphocytes Percent Auto 25.7 % (18.3-44.2); Mean Corpuscular HGB Conc 33.3 g/dl (32-36); Mean Corpuscular Hemoglobin 30.1 pg (26-34); Mean Corpuscular Volume 90.4 fl (80-100); Mean Platelet Volume 10.6 fl (7.4-10.4); Monocytes Absolute Auto 0.6 K/mm3 (0.1-0.6); Monocytes Percent Auto 10.2 % (2.6-8.5); Neutrophils Absolute Auto 3.4 K/mm3 (1.3-6.7); Neutrophils Percent Auto 63.2 % (45.5-73.1); Platelet Count Result 249 k/mm3 (150-375); Red Blood Count 3.85 M/mm3 (4.6-6.20); Red Cell Distribution Width 13.4 % (11.5-14.5); White Blood Count 5.4 K/mm3 (4.5-10.0)
[2024-06-23 19:18] LABS: Alanine Aminotransferase 17 U/L (6-50); Albumin Level 4.2 g/dL (3.5-5.1); Alkaline Phosphatase 71 U/L (38-126); Anion Gap 10 mmol/L (4-12); Aspartate Amino Transferase 22 U/L (17-59); Bilirubin,Total 0.4 mg/dL (0.2-1.3); Blood Urea Nitrogen 24 mg/dL (9-20); Carbon Dioxide 24 mmol/L (22-30); Chloride 107 mmol/L (98-107); Estimated CRCL calculation 41 ml/min; Estimated Glomerular Filt Rate 47; Glucose 108 mg/dL (65-110); Potassium 3.6 mmol/L (3.4-5.0); Sodium 141 mmol/L (137-145)
--- NOTE | 2024-06-23 19:21 | PC.NURSE ---
This RN called and spoke with [employer]) who reports that they did not call the patient to tell him to come to the Emergency Department. However, they did report that patient had two episodes today of pSVT, one at 1436 of HR of 157 lasting for approx 60 seconds, and another at 1602 of HR of 145 lasting for approx 40 sec. Report to be faxed from company to ED. This information passed along to Dr Brambila.
--- OUTSIDE RECORDS SUMMARY | 2024-06-23 19:28 | XMS_ITS | Clinical Summary ---
Author Organization [facility] Address [address] [place] [address] Care Team Providers Care Teradata Developer Name Role Phone Alex Pepper MD Primary Care Provider +1- [phone] Social History Tobacco Use Types Packs/Day Years [...] complete this topic Insurance ESSENCE Care Teams Teradata Developer Relationship Specialty Start Date End Date Alex Pepper MD [address] [address] PCP - General FAMILY PRACTICE 08/13/22
[2024-06-23 19:31] LABS: NT Pro B Type Natriuretic Pept 485 pg/mL (19.9-100); Troponin I < 0.012 ng/mL (0.000-0.034)
--- NOTE | 2024-06-23 20:09 | ED_ITS ---
HPI - Arrhythmia/Palpitations General Chief Complaint: Arrhythmia/Palpitations Stated Complaint: Intermittent palpitations-sent by MD Time Seen by Provider: 06/23/24 18:29 Source: patient Mode of arrival: ambulatory Limitations: no limitations History of Present Illness HPI narrative: 83-year-old with a history of hypertension, glaucoma here with a complains of intermittent palpitations for quite some time. He was seen few weeks ago here in the ER now has a Holter monitor. Patient states this afternoon he was having fast heartbeat. To call his primary doctor's office and was recommended to come to the ER. He presently has no chest pain or shortness of breath or palpitations. MD complaint: rapid heart beat Severity: mild Context: occurred during rest Arrhythmia history: other (Unknown) Associated symptoms: denies other symptoms Related Data Home Medications ?Medication ?Instructions ?Recorded ?Confirmed ?Last Taken ?Type coenzyme Q10 100 mg capsule 100 mg PO DAILY 06/25/22 06/14/24 Unknown History (CoQ-10) magnesium 250 mg tablet 250 mg PO DAILY 06/25/22 06/14/24 Unknown History omega 0-xnc-dkv-fish oil 60 mg-90 1 cap PO DAILY 06/25/22 06/14/24 Unknown History mg-500 mg capsule (Fish Oil) latanoprost 0.005 % eye drops 1 drp EACH EYE HS 02/28/23 06/14/24 Unknown History timolol maleate 0.5 % eye drops 1 drp EACH EYE DAILY 02/28/23 06/14/24 Unknown History Allergies Allergy/AdvReac Type Severity Reaction Status Date / Time omeprazole Allergy Severe UNKNOWN Verified 06/23/24 18:02 celecoxib Allergy Unknown Joint Pain Verified 06/23/24 18:02 clopidogrel Allergy Unknown Bleeds out Verified 06/23/24 18:02 lisinopril Allergy Unknown cough Verified 06/23/24 18:02 Penicillins Allergy Unknown Rash Verified 06/23/24 18:02 Lwitjyu-OPK-EfV Reductase Allergy Unknown JOINT PAIN Verified 06/23/24 18:02 Inhibitor (Aydphcd-Qwl-Hyi Reductase Inhibitor) prednisone AdvReac Intermediate Other Verified 06/23/24 18:02 trazodone AdvReac Intermediate Other Verified 06/23/24 18:02 Review of Systems 2 Review of Systems: All systems reviewed & are unremarkable except as noted in HPI and below Constitutional: Constitutional: Reports no additional constitutional complaints Eyes: Eyes: Reports no additional eye complaints ENT: Reports system reviewed and no additional complaints, except as documented Cardiovascular: Cardiovascular: Reports as per HPI and Reports no additional cardiovascular complaints Respiratory: Respiratory: Reports no additional respiratory complaints Gastrointestinal: Gastrointestinal: Reports no additional gastrointestinal complaints Genitourinary: Genitourinary: Reports no additional male genitourinary complaints PMFSH Past Medical History Medical History Normal colonoscopy 12/17 GERD (gastroesophageal reflux disease) Coronary artery disease Family History Family History Mother Heart disease Acute myocardial infarction Breast cancer Father Carcinoma of colon Depression Sibling Heart disease Other Asthma Social History Social History Smoking status: Never smoker Second hand tobacco smoke exposure: Yes Alcohol intake: never Substance use: never Substance use type: does not use Lack of Transportation: No Lack of Food: Never True Current Housing: I Have Housing Concerned About Future Housing: No Difficulty Paying Gas/Electric Bills: No Difficulty Paying for Meds: No Currently Unemployed: No Education: High School Diploma/GED Living arrangements: with family Occupation/Education: retired Gender identity (if verbalized by the patient): Male Sexual Orientation (if Verbalized by the Patient): Straight or Heterosexual Spiritual care concerns: No Agree to blood products: Yes Exam 2 Narrative: GENERAL: Well-appearing, well-nourished, and in no acute distress. HEAD: Normocephalic, atraumatic. EYES: PERRLA and EOMI. ENT: Nares clear, no rhinorrhea or epistaxis. Mucous membranes moist. NECK: Supple. CHEST: Clear to auscultation. No respiratory distress. HEART: Regular rate and rhythm. No murmur heard. Normal peripheral pulses. ABDOMEN: Soft, nontender, nondistended, normal active bowel sounds. EXTREMITIES: Normal range of motion. No edema. SKIN: Warm, dry, no rash. NEURO: No focal deficits. Alert and oriented x3. PSYCH: Normal mood and affect. Course Course Emergency Course: Patient remained asymptomatic. We did receive information from the Holter monitor had a periods of PSVT lasting for few seconds to a minute no history of AFib or blocks. I discussed with Dr. Duarte recommended Toprol. I discussed lab work, EKG findings with the patient and his . Recommended him to start Toprol XL 25 mg daily and follow with Dr. Duarte. He does feel comfortable going home Vital Signs Vital signs: Vital Signs Temperature 36.4 C 06/23/24 18:20 Pulse Rate 86 06/23/24 18:20 Respiratory Rate 16 06/23/24 18:20 Blood Pressure 172/81 H 06/23/24 18:20 Pulse Oximetry 97 06/23/24 18:20 Oxygen Delivery Room Air 06/23/24 18:20 Temperature 36.4 C 06/23/24 18:20 Pulse Rate 74 06/23/24 19:13 Respiratory Rate 14 06/23/24 19:13 Blood Pressure 173/96 H 06/23/24 19:13 Pulse Oximetry 100 06/23/24 19:13 Oxygen Delivery Room Air 06/23/24 18:20 MDM - Arrhythmia/Palpitations Differential Diagnosis Differential diagnosis: Likely palpitations, anxiety, ventricular premature beats and supraventricular tachycardia Medical Records Attestation: I reviewed the patient's medical records. Lab Data Attestation: I reviewed the patient's lab results. 06/23/24 18:51 06/23/24 18:51 Labs: Lab Results 06/23/24 Range/Units 18:51 WBC 5.4 (4.5-10.0) K/mm3 RBC 3.85 L (4.6-6.20) M/mm3 Hgb 11.6 L (14.0-18.0) g/dL Hct 34.8 L (42.0-52.0) % MCV 90.4 (80-100) fl MCH 30.1 (26-34) pg MCHC 33.3 (32-36) g/dl RDW 13.4 (11.5-14.5) % Plt Count 249 (150-375) k/mm3 MPV 10.6 H (7.4-10.4) fl Immature Gran % (Auto) 0.2 (0-0.5) % Neut % (Auto) 63.2 (45.5-73.1) % Lymph % (Auto) 25.7 (18.3-44.2) % [place] % (Auto) 10.2 H (2.6-8.5) % Eos % (Auto) 0.0 (0-4.4) % Baso % (Auto) 0.7 (0.2-1.2) % Lymph # (Auto) 1.38 (0.9-3.2) K/mm3 [place] # (Auto) 0.6 (0.1-0.6) K/mm3 Eos # (Auto) 0.0 (0-0.3) K/mm3 Baso # (Auto) 0.0 (0.0-0.1) K/mm3 Abs Immat Gran (auto) 0.01 (0.00-0.031) K/mm3 Absolute Neuts (auto) 3.4 (1.3-6.7) K/mm3 Absolute Nucleated RBC 0.000 (0.0-0.012) K/mm3 Nucleated RBC % 0.0 (0.0-0.2) % Sodium 141 (137-145) mmol/L Potassium 3.6 (3.4-5.0) mmol/L Chloride 107 (98-107) mmol/L Carbon Dioxide 24 (22-30) mmol/L Anion Gap 10 (4-12) mmol/L BUN 24 H (9-20) mg/dL Creatinine 1.44 H (0.7-1.3) mg/dL Estim Creat Clear Calc 41 ml/min Estimated GFR 47 L (59 - ) Glucose 108 (65-110) mg/dL Calcium 9.0 (8.4-10.2) mg/dL Total Bilirubin 0.4 (0.2-1.3) mg/dL AST 22 (17-59) U/L ALT 17 (6-50) U/L Alkaline Phosphatase 71 (38-126) U/L Troponin I < 0.012 (0.000-0.034) ng/mL NT-Pro-B Natriuret Pep 485 H (19.9-100) pg/mL Total Protein 7.0 (6.3-8.2) g/dL Albumin 4.2 (3.5-5.1) g/dL ECG Data EKG #1: ECG completion date: 06/23/24 ECG completion time: 18:23 EKG Interpretation: normal rate (86), sinus rhythm, non-specific ST changes and NL axis Discharge Plan Discharge Clinical Impression: PSVT (paroxysmal supraventricular tachycardia) Patient Disposition: Home, Self-Care Condition: Stable Instructions: Supraventricular Tachycardia (ED) Patient Language: [place] Irish Prescriptions: New metoprolol succinate [Toprol XL] 25 mg tablet extended release 24 hr 25 mg PO DAILY Qty: 30 0RF No Action latanoprost 0.005 % drops 1 drp EACH EYE HS timolol maleate 0.5 % drops 1 drp EACH EYE DAILY magnesium 250 mg tablet 250 mg PO DAILY coenzyme Q10 [CoQ-10] 100 mg capsule 100 mg PO DAILY omega 1-sku-sgi-fish oil [Fish Oil] 60-90-500 mg capsule 1 cap PO DAILY allopurinol 100 mg tablet 100 mg PO DAILY Qty: 30 8RF Rx Instructions: Take 1 tablet by mouth daily. colchicine 0.6 mg tablet 0.6 mg PO DAILY Qty: 20 0RF Rx Instructions: Take 1 tablet once daily until until 24 to 48 hours after the gout flare resolves. Follow-up/Referrals: Cezar Duarte DO [Physician] - Alex Pepepr MD [Primary Care Provider] - Time of Disposition: 20:12
[2024-06-23] MEDS: METOPROLOL SUCCINATE EXT REL 25 MG TABCR PO (20:37)
== END 2024-06-23 20:46 | disposition home or self-care (01) ==
PROVIDERS: Emergency Provider Family Medicine; PCP Family Medicine Adolescent Medicine
DX: I47.10 Supraventricular tachycardia, unspecified (principal); I10 Essential (primary) hypertension; I25.10 Atherosclerotic heart disease of native coronary artery without angina pectoris; H40.9 Unspecified glaucoma; K21.9 Gastro-esophageal reflux disease without esophagitis; Z77.22 Contact with and (suspected) exposure to environmental tobacco smoke (acute) (chronic); I44.4 Left anterior fascicular block; R94.31 Abnormal electrocardiogram [ECG] [EKG]
CPT/HCPCS: 36415; 80053; 83880; 84484; 85025; 93005; 99284; A9270

== ENCOUNTER 2024-11-03 12:45 | Outpatient (CLI) | payer OTHER, SELFPAY ==
--- OUTSIDE RECORDS SUMMARY | 2024-11-03 12:49 | XMS_ITS | Clinical Summary ---
Author Organization [facility] Address [address] [place] [address] Care Team Providers Care Asphalt Still Operator Name Role Phone Alex Pepper MD Primary Care Provider +1- [phone] Social History Tobacco Use Types Packs/Day Years Used Date Smoking Tobacco: Never Assessed Sex and Gender Information Value Date Recorded Sex Assigned at Not on file Legal Sex Male 12:35 PM CDT Gender Identity Not on file Sexual Orientation Not on file Plan of Treatment Health Maintenance Due Date Last Done Comments Pneumococcal Vaccine: 50+ Ye ars (1 of 1 - PCV) 1992 Zoster Vaccines (1 of 2) 1992 Annual Medicare Wellness Visit 07/24/2007 RSV Immunization or 60+ Years (1 - 1-dose 75+ series) 2017 COVID-19 Vaccine ( - 2023-2 5 season) 2023 DTaP, Tdap and Td Vaccines ( [...] complete this topic Insurance [employer] Care Teams Asphalt Still Operator Relationship Specialty Start Date End Date Alex Pepper MD [address] [address] PCP - General FAMILY PRACTICE 08/13/22
== END 2024-11-03 12:46 | disposition home or self-care (01) ==
LOC: ANHAUDASC 12:46
PROVIDERS: PCP Family Medicine Adolescent Medicine; Visit Provider Otolaryngology
DX: H93.13 Tinnitus, bilateral (principal); H90.3 Sensorineural hearing loss, bilateral
CPT/HCPCS: 92557; 92567